=== PATIENT | female | born 1985 | race Caucasian/White ===

== ENCOUNTER 2023-11-16 11:41 | Emergency (ER) | payer OTHER, SELFPAY ==
[2023-11-16 11:42] VITALS: BP 142/89; PULSE 93; RESP 18; TEMP 36.8; O2SAT 98; BMI 27.4
[2023-11-16 12:40] LABS: Alanine Aminotransferase 20 IU/L (<35); Ethanol (ETOH) < 10 mg/dL
[2023-11-16 12:48] LABS: UR Morphine/Opiate cutoff 300 Negative (Negative); Ur Creatinine Normal (Normal); Ur Specific Gravity Normal (Normal); Urine Amphetamines Negative (Negative); Urine Barbiturates Negative (Negative); Urine Benzodiazepines Negative (Negative); Urine Cocaine Negative (Negative); Urine MDMA Negative (Negative); Urine Methadone Negative (Negative); Urine Methamphetamines Negative (Negative); Urine Oxycodone Negative (Negative); Urine Phencyclidine Negative (Negative); Urine Tetrahydrocannabinol Negative (Negative); Urine Tricyclic Antidepressant Negative (Negative); Urine pH Normal (Normal)
[2023-11-16] MEDS: TET,DIPH,PERTUSS(ACELL),VAC/PF 0.5 ML SYRINGE IM (13:04)
--- NOTE | 2023-11-16 13:38 | ED.GENADULT ---
HPI - General Adult <Gio Mancilla PA-C - Last Filed: 11/16/23 16:44> General Chief complaint: Blood/Body fluid exposure Stated complaint: exposed to blood Time Seen by Provider: 11/16/23 11:51 Source: patient Mode of arrival: Ambulatory History of Present Illness HPI narrative: 38-year-old female presents to the ED status post a exposure to bodily fluids including vomit and blood just prior to arrival. 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 Patient peters to help the patient, did not have time to put on PPE including gloves. Patient's hands were exposed to blood from the patient. Patient also vomited right after and patient was also exposed to the vomit on her hands. Patient is concerned about exposures since she has very small cuts on her hands. Patient was sent by her chemical supervisor to the ED for further evaluation and treatment. Patient states that she is not vaccinated for hepatitis-B or tetanus. Source status is unknown. Related Data Allergies Allergy/AdvReac Type Severity Reaction Status Date / Time No Known Drug Allergies Allergy Verified 11/16/23 11:50 Review of Systems <Gio Mancilla PA-C - Last Filed: 11/16/23 16:44> Review of Systems Narrative: Exposure to bodily fluids including vomit, blood Constitutional Constitutional: Denies chills, Denies fatigue, Denies fever(s), Denies frequent falls, Denies lethargy and Denies weakness Eyes Eyes: Denies change in vision, Denies eye discharge, Denies irritation and Denies loss of vision ENT Ears, Nose, Mouth, and Throat: Denies change in voice, Denies dizziness, Denies neck pain, Denies sore throat and Denies throat swelling Cardiovascular Cardiovascular: Denies chest pain, Denies irregular heart rhythm, Denies lightheadedness, Denies palpitations, Denies dyspnea, Denies dyspnea on exertion and Denies orthopnea Respiratory Respiratory: Denies cough, Denies dyspnea, Denies dyspnea on exertion and Denies wheezing Gastrointestinal Gastrointestinal: Denies abdominal pain, Denies change in bowel habits, Denies diarrhea, Denies nausea and Denies vomiting Musculoskeletal Musculoskeletal: Denies neck pain and Denies numbness Integumentary/Breasts Skin/Breast: Denies pruritus, Denies erythema, Denies rash and Denies wounds Neurologic Neurologic: Denies behavioral changes, Denies confusion, Denies dizziness, Denies frequent falls, Denies loss of vision, Denies numbness and Denies weakness Psychiatric Psychiatric: Denies anxiety, Denies behavioral changes, Denies confusion, Denies depression, Denies homicidal ideation and Denies suicidal ideation Endocrine Endocrine: Denies fatigue, Denies flushing and Denies palpitations Hematologic/Lymphatic Hematologic/Lymphatic: Denies easy bruising Allergic/Immunologic Allergic/Immunologic: Denies urticaria, Denies throat swelling and Denies wheezing Patient History <Gio Mancilla PA-C - Last Filed: 11/16/23 16:44> Social History Smoking Status: Current every day smoker Smoking Status: Current every day smoker tobacco type: cigarettes Exam <Gio Mancilla PA-C - Last Filed: 11/16/23 16:44> Narrative Exam Narrative: Const General:?cooperative, healthy appearing and comfortable [facility] [place] Head:?normal to inspection Ears:?hearing grossly normal bilaterally Nose:?external nose normal Face and sinus:?normal facial exam and sinuses nontender Mouth:?oral mucosae normal Throat:?posterior oropharynx normal Eyes General:?appearance normal, both eyes and all related structures Neck Neck:?normal visual inspection and no lymphadenopathy noted Resp Effort & Inspection:?normal respiratory effort Auscultation:?clear to auscultation bilaterally Cardio Rate:?regular rate Rhythm:?regular rhythm Integumentary Very small cuts/scratches on bilateral hands. Neuro General:?patient alert, patient awake and patient oriented x3 Initial Vital Signs Initial Vital Signs: Vital Signs Temperature 98.3 F 11/16/23 11:42 Pulse Rate 93 H 11/16/23 11:42 Respiratory Rate 18 11/16/23 11:42 Blood Pressure 142/89 H 11/16/23 11:42 Pulse Oximetry 98 11/16/23 11:42 Oxygen Delivery Method Room Air 11/16/23 11:42 <Marielos Murray DO - Last Filed: 11/23/23 03:17> Initial Vital Signs Initial Vital Signs: Vital Signs Temperature 98.3 F 11/16/23 11:42 Pulse Rate 93 H 11/16/23 11:42 Respiratory Rate 18 11/16/23 11:42 Blood Pressure 142/89 H 11/16/23 11:42 Pulse Oximetry 98 11/16/23 11:42 Oxygen Delivery Method Room Air 11/16/23 11:42 Course <Gio Mancilla PA-C - Last Filed: 11/16/23 16:44> Orders Ordered: Discontinued Medications Diphtheria/Tetanus/Acell Pertussis (Tet,Diph,Pertuss(Acell),Vac/Pf 0.5 Ml Syringe) 0.5 ml IM .ONCE ONE Stop: 11/16/23 12:05 Last Admin: 11/16/23 13:04 Dose: 0.5 ml Documented By: RL Hepatitis B Immune Globulin (Hepatitis B Immune Globulin 5 Ml Vial) 4.4 ml 0.06 ml/kg (4.4 ml) IM NOW ONE Stop: 11/16/23 12:00 Last Admin: 11/16/23 14:44 Dose: 4.4 ml Documented By: RL Hepatitis B Vaccine (Hepatitis B Vac (Engerix-B) 10 Mcg/0.5 Ml Vial) 10 mcg IM .ONCE ONE Stop: 11/16/23 13:46 Last Admin: 11/16/23 13:40 Dose: 10 mcg Documented By: MUNIR Vital Signs Vital signs: Vital Signs - 8 hr 11/16/23 11:42 11/16/23 14:28 Temperature 98.3 F Pulse Rate 93 H 70 Respiratory Rate 18 21 Blood Pressure 142/89 H 125/78 Pulse Oximetry 98 100 Oxygen Delivery Method Room Air Room Air <Marielos Murray DO - Last Filed: 11/23/23 03:17> Orders Ordered: Discontinued Medications Diphtheria/Tetanus/Acell Pertussis (Tet,Diph,Pertuss(Acell),Vac/Pf 0.5 Ml Syringe) 0.5 ml IM .ONCE ONE Stop: 11/16/23 12:05 Last Admin: 11/16/23 13:04 Dose: 0.5 ml Documented By: MUNIR Hepatitis B Immune Globulin (Hepatitis B Immune Globulin 5 Ml Vial) 4.4 ml 0.06 ml/kg (4.4 ml) IM NOW ONE Stop: 11/16/23 12:00 Last Admin: 11/16/23 14:44 Dose: 4.4 ml Documented By: MUNIR Hepatitis B Vaccine (Hepatitis B Vac (Engerix-B) 10 Mcg/0.5 Ml Vial) 10 mcg IM .ONCE ONE Stop: 11/16/23 13:46 Last Admin: 11/16/23 13:40 Dose: 10 mcg Documented By: MUNIR Vital Signs Vital signs: Vital Signs - 8 hr 11/16/23 11:42 11/16/23 14:28 Temperature 98.3 F Pulse Rate 93 H 70 Respiratory Rate 18 21 Blood Pressure 142/89 H 125/78 Pulse Oximetry 98 100 Oxygen Delivery Method Room Air Room Air Medical Decision Making <Gio Mancilla PA-C - Last Filed: 11/16/23 16:44> Lab Data Labs: Lab Results 11/16/23 11/16/23 Range/Units 12:09 12:22 ALT 20 (<35) IU/L U Opiates 300ng/mL cut Negative (Negative) Ur Oxycodone Screen Negative (Negative) Urine Methadone Screen Negative (Negative) Ur Barbiturates Screen Negative (Negative) U Tricyclic Antidepress Negative (Negative) Ur Phencyclidine Scrn Negative (Negative) Ur Amphetamines Screen Negative (Negative) U Methamphetamines Scrn Negative (Negative) Ur MDMA Scrn (Ecstasy) Negative (Negative) U Benzodiazepines Scrn Negative (Negative) Urine Cocaine Screen Negative (Negative) U Marijuana (THC) Screen Negative (Negative) Urine pH Normal (Normal) Urine Specific [place] Normal (Normal) Ethyl Alcohol < 10 ( - 10) mg/dL Ur Creatinine Normal (Normal) Hepatitis C Antibody Cancelled Ref Test (Refrig) Comment (.) MDM Narrative Medical decision making narrative: 38-year-old female presents to the ED status post a exposure to bodily fluids including vomit and blood just prior to arrival. Discussed risks of exposure and prophylaxis options with patient. Although patient is not vaccinated for hepatitis and tetanus, she is agreeable to receiving prophylaxis for both. Will give hepatitis B immunoglobulin, give the 1st dose of the hepatitis-B vaccine. Will also administer the tetanus vaccine. Discussed the low risk of HIV transmission given the scenario, joint decision was made to defer HIV prophylaxis at this time. Blood work, urine testing obtained per protocol. ED return precautions were discussed with patient. Patient verbalized understanding. Medical records reviewed: Yes <Marielos Murray DO - Last Filed: 11/23/23 03:17> Lab Data Labs: Lab Results 11/16/23 11/16/23 Range/Units 12:09 12:22 ALT 20 (<35) IU/L U Opiates 300ng/mL cut Negative (Negative) Ur Oxycodone Screen Negative (Negative) Urine Methadone Screen Negative (Negative) Ur Barbiturates Screen Negative (Negative) U Tricyclic Antidepress Negative (Negative) Ur Phencyclidine Scrn Negative (Negative) Ur Amphetamines Screen Negative (Negative) U Methamphetamines Scrn Negative (Negative) Ur MDMA Scrn (Ecstasy) Negative (Negative) U Benzodiazepines Scrn Negative (Negative) Urine Cocaine Screen Negative (Negative) U Marijuana (THC) Screen Negative (Negative) Urine pH Normal (Normal) Urine Specific [place] Normal (Normal) Ethyl Alcohol < 10 ( - 10) mg/dL Ur Creatinine Normal (Normal) Hepatitis C Antibody Cancelled Ref Test (Refrig) Comment (.) Discharge Plan Departure Patient Disposition: Home Clinical Impression: Exposure to blood or body fluid Instructions: DI for Accidental Exposure to Body Fluids Activity Restrictions/Additional Instructions: You were evaluated in the ED today for exposure to bodily fluids including blood and vomit. We discussed prophylaxis treatment for hepatitis-B, tetanus, HIV. We jointly decided after discussion that we will proceed with the tetanus and hepatitis-B prophylaxis, and defer HIV prophylaxis given the low risk of transmission. We obtain the necessary blood and urine tests per protocol. You received the tetanus vaccine today which is good for the next 10 years. You were given a dose of the hepatitis-B immunoglobulin. You also received the 1st dose of hepatitis-B vaccine. The hepatitis-B vaccine as a series of 3 and you will receive the second dose 1 month from today, and the 3rd dose 6 months from today. You may go to the your PCP or a pharmacy for the next 2 doses. Referrals: Miscellaneous,[facility] [Non-Staff] - Stand Alone Forms: Patient Portal/API ED Sign-out <Marielos Murray DO - Last Filed: 11/23/23 03:17> Cosign ED Attending Cosignature Attestation: I was available for consultation.
[2023-11-16] MEDS: HEPATITIS B VAC (ENGERIX-B) 10 MCG/0.5 ML VIAL IM (13:40)
[2023-11-16 14:28] VITALS: BP 125/78; PULSE 70; RESP 21; O2SAT 100
[2023-11-16] MEDS: HEPATITIS B IMMUNE GLOBULIN 5 ML VIAL 4.4 ML IM (14:44)
== END 2023-11-16 15:00 | disposition home or self-care (01) ==
PROVIDERS: Emergency Provider Student in an Organized Health Care Education/Training Program; PCP Family Medicine
DX: Z77.21 Contact with and (suspected) exposure to potentially hazardous body fluids (principal); Z23 Encounter for immunization; Y99.0 Civilian activity done for income or pay
CPT/HCPCS: 36415; 80305; 80320; 84460; 90471; 90746; 96372; 99283; 90715; J1571